=== PATIENT | female | born 1975 | race African-American/Black ===

== ENCOUNTER 2021-01-27 10:06 | Outpatient (REF) | payer OTHER, SELFPAY ==
[2021-01-27 11:12] LABS: MANUAL DIFF FLAG NO
[2021-01-27 11:37] LABS: Basophils Percent Auto 0.6 % (0-2); Eosinophils Absolute Auto 0.1 X10*3/uL (0.0-0.4); Eosinophils Percent Auto 1.6 % (0-4); Hematocrit 42.4 % (37-47); Hemoglobin 13.6 g/dl (12.0-16.0); Imm Gran Abs Auto 0.02 X10*3/uL (0.00-0.03); Imm Gran Pct Auto 0.3 % (0.0-0.4); Lymphocytes Absolute Auto 1.8 X10*3/uL (1.2-4.9); Lymphocytes Percent Auto 26.6 % (20-40); Mean Corpuscular HGB Conc 32.1 g/dl (31.0-35.0); Mean Corpuscular Hemoglobin 30.2 pg (27.0-33.0); Mean Platelet Volume 10.6 fL (9.4-12.3); Monocytes Absolute Auto 0.4 X10*3/uL (0.1-1.2); Monocytes Percent Auto 5.7 % (2-11); Neutrophils Absolute Auto 4.4 X10*3/uL (2.0-8.3); Neutrophils Percent Auto 65.2 % (45-73); Platelet Count 216 X10*3/uL (160-400); Red Blood Count 4.51 X10*6/uL (4.20-5.50); White Blood Count 6.8 X10*3/uL (4.8-10.8)
[2021-01-27 11:59] LABS: Alanine Aminotransferase 12 U/L (0-31); Alkaline Phosphatase 90 U/L (39-117); Anion Gap 10 (12-20); Aspartate Amino Transferase 13 U/L (5-31); Bilirubin Total 0.6 mg/dL (0.0-1.0); Blood Urea Nitrogen 12 mg/dL (9-16); Calcium 9.3 mg/dL (8.4-10.2); Carbon Dioxide 27 mmol/L (22-29); Chloride 106 mmol/L (96-108); Estimated Glomerular Filt Rate > 60; Glucose Random 99 mg/dL (60-115); Potassium 4.1 mmol/L (3.3-5.1); Sodium 139 mmol/L (135-145)
[2021-01-27 12:23] LABS: Ferritin 17 ng/mL (10-250); TSH reflex Free T4 1.48 uIU/mL (0.32-4.0)
[2021-01-31 14:01] LABS: Vitamin D 25-OH, D2 <4 ng/mL; Vitamin D 25-OH, D3 15 ng/mL; Vitamin D 25-OH, Total 15 ng/mL (30-100)
== END 2021-01-27 10:07 | disposition home or self-care (01) ==
LOC: HO.HMGCLDS 10:06
PROVIDERS: PCP Internal Medicine; Visit Provider Internal Medicine
DX: E66.01 Morbid (severe) obesity due to excess calories (principal); R51.9 Headache, unspecified; R53.83 Other fatigue
CPT/HCPCS: 36415; 80053; 82306; 82728; 84443; 85025

== ENCOUNTER 2021-03-29 08:58 | Outpatient (REF) | payer OTHER, SELFPAY ==
[2021-03-29 13:01] LABS: CT PCR NOT DETECTED (Not Detect.); NG PCR NOT DETECTED (Not Detect.)
[2021-03-30 09:14] LABS: BV Int Neg Control Negative (Negative); BV Int Pos Control Positive (Positive)
== END 2021-03-29 08:59 | disposition home or self-care (01) ==
LOC: HO.LAB 08:58
PROVIDERS: Visit Provider Nurse Practitioner Family
DX: R30.0 Dysuria (principal)
CPT/HCPCS: 87086; 87480; 87491; 87510; 87591; 87660

== ENCOUNTER 2021-08-02 09:04 | Outpatient (REF) | payer OTHER, SELFPAY ==
[2021-08-02 12:11] LABS: HBsAGNum1 0.14 S/CO (0.00-0.99); Hepatitis B Surface Antigen Negative (Negative)
[2021-08-03 08:52] LABS: Rubeola IgG (Measles) >300.00 AU/mL
[2021-08-04 19:11] LABS: TS Negative Control Passed; TS Panel A 0; TS Panel B 0; TS Positive Control Passed; TSpotTB Negative (Negative)
== END 2021-08-02 09:05 | disposition home or self-care (01) ==
LOC: HO.HMGCLDS 09:04
PROVIDERS: PCP Internal Medicine; Visit Provider Physician Assistant Medical
DX: Z02.1 Encounter for pre-employment examination (principal); Z20.822 Contact with and (suspected) exposure to COVID-19; Z11.1 Encounter for screening for respiratory tuberculosis
CPT/HCPCS: 86481; 86735; 86762; 86765; 86787; 87340; U0003; U0005

== ENCOUNTER 2022-08-05 11:43 | Outpatient (REF) | payer OTHER, SELFPAY ==
[2022-08-05 16:24] LABS: CT PCR NOT DETECTED (Not Detect.); NG PCR NOT DETECTED (Not Detect.)
[2022-08-06 15:03] LABS: BV Int Neg Control Negative (Negative)
[2022-08-06 15:04] LABS: BV Int Pos Control Positive (Positive)
[2022-08-08 18:32] LABS: TS Negative Control Passed; TS Panel A 3; TS Panel B 3; TS Positive Control Passed; TSpotTB Negative (Negative)
== END 2022-08-05 11:44 | disposition home or self-care (01) ==
LOC: HO.HMGCLDS 11:43
PROVIDERS: PCP Internal Medicine; Visit Provider Internal Medicine
DX: Z11.1 Encounter for screening for respiratory tuberculosis (principal); Z11.3 Encounter for screening for infections with a predominantly sexual mode of transmission
CPT/HCPCS: 86481; 87480; 87491; 87510; 87591; 87660

== ENCOUNTER 2022-11-02 08:18 | Outpatient (REF) | payer OTHER, SELFPAY ==
[2022-11-02 12:04] LABS: Alanine Aminotransferase 12 U/L (0-31); Albumin Level 3.9 g/dL (3.5-5.0); Alkaline Phosphatase 102 U/L (39-117); Anion Gap 12 (12-20); Aspartate Amino Transferase 12 U/L (5-31); Bilirubin Total 0.5 mg/dL (0.0-1.0); Blood Urea Nitrogen 12 mg/dL (9-16); Calcium 9.6 mg/dL (8.4-10.2); Carbon Dioxide 26 mmol/L (22-29); Chloride 107 mmol/L (96-108); Estimated Glomerular Filt Rate > 60; Glucose Random 99 mg/dL (60-115); Sodium 141 mmol/L (135-145); Total Protein 6.8 g/dL (6.5-8.0)
[2022-11-02 12:24] LABS: Free T4 (Free Thyroxine) 1.07 ng/dL (0.71-1.85); Thyroid Stimulating Hormone 4.35 uIU/mL (0.32-4.0)
== END 2022-11-02 08:19 | disposition home or self-care (01) ==
LOC: HO.HMGCLDS 08:18
PROVIDERS: PCP Internal Medicine; Visit Provider Pediatrics
DX: R79.89 Other specified abnormal findings of blood chemistry (principal); R94.6 Abnormal results of thyroid function studies
CPT/HCPCS: 36415; 80053; 84439; 84443

== ENCOUNTER 2023-04-17 08:57 | Outpatient (AMB) | payer OTHER, SELFPAY ==
--- NOTE | 2023-04-17 10:21 | MHC.OFFWIV ---
Intake Vital Signs 04/17/23 10:22 BP 120/72 Blood Pressure Location Lt brachial Position Sitting Pulse 79 Pulse Source Pulse Oximeter Temp 97.0 F Temp Source Oral Pulse Oximetry (%) 98 Oxygen Delivery Method Room Air Intake Visit Reasons: EP, Injury due to fall Intake Note: Pt is here today took a fall x3 days ago in a puddle of water and fell back and c/o Rt knee pain Patient Tobacco Use Status: Never used Tobacco Allergies No Known Allergies [No Known Allergies*] Allergy (Verified 04/17/23 10:24) HPI EP, Injury due to fall HPI Details Patient presents with right knee pain and soreness in her neck and back after a fall at work 3 days ago. She was seen at [facility] ER and states that x-rays were done of her right knee and she was given naproxen, Robaxin, lidocaine. Which she has been using along with ice and elevation of her leg. 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 There are no records available to review from her ED visit. She denies LOC or blow to head. Denies dizziness nausea or vomiting. Most persistent complaint is right knee pain which she states took the brunt of her fall. She fell onto both knees and then backwards. [facility] Social History Housing: House Alcohol intake: current Alcohol intake frequency: holidays/special occasions only Patient Tobacco Use Status: Never used Tobacco e-Cigarette/Vaping Use: Never Used service: No Current occupational status: employed Cognitive needs: No Hearing needs: No Vision needs: No Review of Systems Const Reports as per HPI and Reports no additional complaints Card Reports as per HPI and Reports no additional complaints Resp Reports as per HPI and Reports no additional complaints GI Reports as per HPI and Reports no additional complaints Musc Reports no additional complaints and Reports as per HPI Skin/Breast Denies lesions Neuro Reports no additional complaints and Reports as per HPI Physical Exam Vital Signs: Last Vital Signs Temp 97.0 F 04/17/23 10:22 Pulse 79 04/17/23 10:22 BP 120/72 04/17/23 10:22 Pulse Ox 98 04/17/23 10:22 Oxygen Delivery Method Room Air 04/17/23 10:22 Const General: cooperative, comfortable and no acute distress Orientation/consciousness: patient oriented x3 Resp Effort & Inspection: normal respiratory effort Auscultation: clear to auscultation bilaterally Cardio Rate: regular rate Rhythm: regular rhythm Heart sounds: S1 normal heart sound present and S2 normal heart sound present General: Yes no CVA tenderness Back/Spine/Pelvis Back: no CVA tenderness Cervical Spine: cervical ROM normal and cervical muscular tenderness (Bilateral) Thoracic/Lumbar Spine: thoracic and lumbar spine normal to inspection, paraspinal muscle tenderness (Bilateral) and No thoracic spinal tenderness Neuro General: patient oriented x3 Extrem Right lower extremity: normal to inspection and full ROM Left lower extremity: full ROM, normal capillary refill and knee Details: abnormal to inspection, tenderness Location: of the tibial tuberosity and of the infrapatellar area; not of the patella, swelling (Mild anterior knee), normal ROM, knee ligament exam normal and ecchymosis (About the anterior knee); no penetrating wound; no cyanosis Assessment & Plan Assessment & Plan (1) Contusion of right knee: Code(s): S80.01XA - Contusion of right knee, initial encounter Qualifiers: Encounter type: initial encounter Qualified Code(s): S80.01XA - Contusion of right knee, initial encounter (2) Cervicalgia: Code(s): M54.2 - Cervicalgia (3) Low back pain: Code(s): M54.50 - Low back pain, unspecified Qualifiers: Chronicity: acute Back pain laterality: bilateral Sciatica presence: without sciatica Qualified Code(s): M54.50 - Low back pain, unspecified Plan Continue meds given by ER. Continue rest and ice gentle stretching as tolerated heat for back may be better. Be out of work this week can return to work Monday if symptoms improve. She should talk to her employer as they may want her to follow up in [facility]. Return to clinic if symptoms persist consider Ortho or PT. I have provided her a knee brace for comfort but advise she should wean out of it as soon as possible to prevent atrophy. Coding Level of Care Code Est Pt Level 3 (16121) Diagnoses Contusion of right knee S80.01XA Encounter type: initial encounter Cervicalgia M54.2 Low back pain M54.50 Chronicity: acute Back pain laterality: bilateral Sciatica presence: without sciatica
[2023-04-17 10:22] VITALS: BP 120/72; PULSE 79; TEMP 36.1; O2SAT 98
== END 2023-04-17 10:20 | disposition home or self-care (01) ==
PROVIDERS: PCP Internal Medicine; Visit Provider Physician Assistant
DX: S80.01XA Contusion of right knee, initial encounter (principal); M54.2 Cervicalgia; M54.50 Low back pain, unspecified
CPT/HCPCS: 99213

== ENCOUNTER 2023-06-05 13:13 | Outpatient (AMB) | payer OTHER, SELFPAY ==
--- NOTE | 2023-06-05 14:36 | AM.OFFWIN_ITS ---
Intake Vital Signs 06/05/23 14:37 Weight 254 lb BP 112/74 Blood Pressure Location Rt brachial Position Sitting Pulse 66 Pulse Source Pulse Oximeter Pulse Oximetry (%) 100 Oxygen Delivery Method Room Air Intake Visit Reasons: EST/left leg pain to toes/swelling(lobby) Intake Note: Patient here for left leg pain, she states its been hurting to the touch for about 4 days now. she states she works on her feet a lot. no known injuries. Patient Tobacco Use Status: Never used Tobacco Allergies No Known Allergies [No Known Allergies*] Allergy (Verified 06/05/23 15:15) Medication List - Last Reconciled 06/05/23 by Popeye Stern MD No Known Home Meds Do you need a note to return to daycare/school/sports/work: No HPI EST/left leg pain to toes/swelling(lobby) HPI Details 48-year-old female presents to the office for a sick visit. Patient is complaining of pain in her left leg for the past 4 days. Symptoms are mostly in the front of the leg. Sometimes they feel numb. Patient is able to walk, climb stairs with no difficulty. Able to function. [facility] Social History Housing: House Alcohol intake: current Alcohol intake frequency: holidays/special occasions only Patient Tobacco Use Status: Never used Tobacco e-Cigarette/Vaping Use: Never Used service: No Current occupational status: employed Cognitive needs: No Hearing needs: No Vision needs: No Physical Exam Vital Signs: Last Vital Signs Pulse 66 06/05/23 14:37 BP 112/74 06/05/23 14:37 Pulse Ox 100 06/05/23 14:37 Oxygen Delivery Method Room Air 06/05/23 14:37 Extrem Other: Left leg: No joint line tenderness at the knee. Full range of motion at the knee. No visible bruising or swelling. Assessment & Plan Assessment & Plan (1) Left leg pain: Code(s): M79.605 - Pain in left leg Plan: Reassurance. To return if symptoms do not improve. Coding Level of Care Code Est Pt Level 3 (84093) Diagnoses Left leg pain M79.605
[2023-06-05 14:37] VITALS: BP 112/74; PULSE 66; O2SAT 100
== END 2023-06-05 15:29 | disposition home or self-care (01) ==
PROVIDERS: PCP Internal Medicine; Visit Provider Internal Medicine
DX: M79.605 Pain in left leg (principal)
CPT/HCPCS: 99213

== ENCOUNTER 2023-08-04 10:57 | Outpatient (REF) | payer OTHER, SELFPAY ==
[2023-08-04 14:15] LABS: Alanine Aminotransferase 23 U/L (0-31); Albumin Level 3.8 g/dL (3.5-5.0); Alkaline Phosphatase 104 U/L (39-117); Anion Gap 12 (12-20); Aspartate Amino Transferase 18 U/L (5-31); Bilirubin Total 0.4 mg/dL (0.0-1.0); Blood Urea Nitrogen 13 mg/dL (9-16); Calcium 9.7 mg/dL (8.4-10.2); Carbon Dioxide 24 mmol/L (22-29); Chloride 106 mmol/L (96-108); Cholesterol 166 mg/dL (<200); Estimated Glomerular Filt Rate > 60; Glucose Random 95 mg/dL (60-115); HDL Cholesterol 67 mg/dL (>40); LDL Cholesterol Calculated 86 mg/dL (<100); Sodium 138 mmol/L (135-145); Total Protein 7.1 g/dL (6.5-8.0); Triglycerides 66 mg/dL (<150)
[2023-08-04 14:19] LABS: TSH reflex Free T4 5.08 uIU/mL (0.32-4.0)
[2023-08-04 14:27] LABS: Vitamin B12 565 pg/mL (200-900)
[2023-08-04 15:30] LABS: Free T4 (Free Thyroxine) 0.88 ng/dL (0.71-1.85)
== END 2023-08-04 10:58 | disposition home or self-care (01) ==
LOC: HO.HMGCLDS 10:57
PROVIDERS: PCP Internal Medicine; Visit Provider Internal Medicine
DX: Z13.89 Encounter for screening for other disorder (principal)
CPT/HCPCS: 36415; 80053; 80061; 82607; 84439; 84443

== ENCOUNTER 2023-11-14 09:12 | Outpatient (REF) | payer OTHER, SELFPAY ==
[2023-11-14 13:24] LABS: TSH reflex Free T4 6.09 uIU/mL (0.32-4.0)
[2023-11-14 14:35] LABS: Free T4 (Free Thyroxine) 0.87 ng/dL (0.71-1.85)
== END 2023-11-14 09:13 | disposition home or self-care (01) ==
LOC: HO.HMGCLDS 09:12
PROVIDERS: PCP Internal Medicine; Visit Provider Internal Medicine
DX: R94.6 Abnormal results of thyroid function studies (principal)
CPT/HCPCS: 36415; 84439; 84443

== ENCOUNTER 2023-11-17 08:22 | Outpatient (AMB) | payer OTHER, SELFPAY ==
--- NOTE | 2023-11-17 10:39 | MHC.PC.OV ---
Vital Signs 11/17/23 10:39 Height 5 ft 6 in Intake Visit Reasons: Discuss Results~ Allergies No Known Allergies [No Known Allergies*] Allergy (Verified 06/05/23 15:15) Tobacco use date assessed: 11/25/22 [facility] Social History Housing: House Alcohol intake: current Alcohol intake frequency: holidays/special occasions only Patient Tobacco Use Status: Never used Tobacco e-Cigarette/Vaping Use: Never Used service: No Current occupational status: employed Cognitive needs: No Hearing needs: No Vision needs: No Questionnaire Thrive Questionnaire I am a: Patient What is your living situation today?: I have a steady place to live Within the past 12 months, did the food you bought not last and you didn't have the money to get more?: Never true Within the past 12 months, did you worry whether your food would run out before you got money to buy more?: Never true Please select the resources that you would like help with: Food and None THRIVE Score: 0 AUDIT C Alcohol Use Questionnaire (AUDIT-C) 1. How often do you have a drink containing alcohol?: Never 2. How many drinks containing alcohol do you have on a typical day when you are drinking?: 1 or 2 3. How often do you have six or more drinks on one occasion?: Never Total Score: 0 RUBÉN-7 AMB Questionnaire RUBÉN-7 Feeling nervous, anxious, or on edge: 1 = Several days Not being able to stop or control worryin = Not at all Worrying too much about different things: 0 = Not at all Trouble relaxin = Several days Being so restless that it is hard to sit still: 1 = Several days Becoming easily annoyed or irritable: 0 = Not at all Feeling afraid as if something awful might happen: 0 = Not at all Total RUBÉN-7 score (0-4 normal; 5-9 mild; 10-14 moderate; 15-21 severe): 3 Source: Developed by Drs. Jurgen Dash, Araceli Singh, Liam Arauz and colleagues, with an educational ameay from [employer]. Physical exam (Primary Care) Tobacco/Smoking Status: Tobacco use Status Tobacco use date assessed 11/25/22 11/25/22 11:45 Patient Tobacco Use Status Never used Tobacco 06/05/23 14:44 e-Cigarette/Vaping Use Never Used 11/25/22 11:45 Coding
--- NOTE | 2023-11-17 11:30 | MHC.PC.OV ---
Vital Signs 11/17/23 10:39 Height 5 ft 6 in Intake Visit Reasons: Discuss Results~ Allergies No Known Allergies [No Known Allergies*] Allergy (Verified 06/05/23 15:15) Medication List - Last Reconciled 11/17/23 by Vicente Phillips MD meloxicam 15 mg PO DAILY Tobacco use date assessed: 11/25/22 HPI Discuss Results~ HPI Details Patient is 48-year-old female this is a telemedicine visit Patient had labs done early October her TSH level was off, so we repeated it again and this time it is worse than before Report discussed with the patient I will be starting her on levothyroxine 50 mcg I have also ordered ultrasound of her thyroid gland Patient was instructed to repeat labs again in 6 weeks. [facility] Social History Housing: House Alcohol intake: current Alcohol intake frequency: holidays/special occasions only Patient Tobacco Use Status: Never used Tobacco e-Cigarette/Vaping Use: Never Used service: No Current occupational status: employed Cognitive needs: No Hearing needs: No Vision needs: No Questionnaire Thrive Questionnaire I am a: Patient What is your living situation today?: I have a steady place to live Within the past 12 months, did the food you bought not last and you didn't have the money to get more?: Never true Within the past 12 months, did you worry whether your food would run out before you got money to buy more?: Never true Please select the resources that you would like help with: Food and None THRIVE Score: 0 AUDIT C Alcohol Use Questionnaire (AUDIT-C) 1. How often do you have a drink containing alcohol?: Never 2. How many drinks containing alcohol do you have on a typical day when you are drinking?: 1 or 2 3. How often do you have six or more drinks on one occasion?: Never Total Score: 0 RUBÉN-7 AMB Questionnaire RUBÉN-7 Feeling nervous, anxious, or on edge: 1 = Several days Not being able to stop or control worryin = Not at all Worrying too much about different things: 0 = Not at all Trouble relaxin = Several days Being so restless that it is hard to sit still: 1 = Several days Becoming easily annoyed or irritable: 0 = Not at all Feeling afraid as if something awful might happen: 0 = Not at all Total RUBÉN-7 score (0-4 normal; 5-9 mild; 10-14 moderate; 15-21 severe): 3 Source: Developed by Drs. Jurgen Dash, Araceli Singh, Liam Arauz and colleagues, with an educational ameya from [employer]. Review of Systems Const Denies chills and Denies fever(s) ENT Denies epistaxis and Denies nasal discharge Card Denies chest pain Resp Denies chest congestion, Denies cough and Denies hemoptysis GI Denies diarrhea and Denies nausea Skin/Breast Denies rash Neuro Reports no additional complaints Psych Reports no additional complaints Endo Reports no additional complaints Physical exam (Primary Care) Tobacco/Smoking Status: Tobacco use Status Tobacco use date assessed 11/25/22 11/25/22 11:45 Patient Tobacco Use Status Never used Tobacco 06/05/23 14:44 e-Cigarette/Vaping Use Never Used 11/25/22 11:45 Telehealth Telehealth Location of provider rendering services: practice address Location of patient: address on file Patient Identification confirmed using: Name, : Yes Telehealth method: voice only Patient verbally consented to treatment: Yes Patient verbally consented to billing insurance company: Yes Patient informed of any privacy concerns related to visit: Yes Minutes spent on Phone/Video with Pt.: 12 Assessment and Plan Assessment & Plan (1) Other specified hypothyroidism: Code(s): E03.8 - Other specified hypothyroidism Plan Patient is 48-year-old female this is a telemedicine visit Patient had labs done early October her TSH level was off, so we repeated it again and this time it is worse than before Report discussed with the patient I will be starting her on levothyroxine 50 mcg I have also ordered ultrasound of her thyroid gland Patient was instructed to repeat labs again in 6 weeks. Orders: Orders TSH reflex Free T4 6 Weeks E03.8 - Other specified hypothyroidism Thyroglobulin Antibodies Today E03.8 - Other specified hypothyroidism Medications: New levothyroxine Take medication on empty stomach 50 mcg PO DAILY 90 tabs 0RF Coding Level of Care Code Tele Est Pt Level 3 (94890) Diagnoses Other specified hypothyroidism E03.8
== END 2023-11-17 12:29 | disposition home or self-care (01) ==
LOC: HO.HMGC 08:22
PROVIDERS: PCP Internal Medicine; Visit Provider Internal Medicine
DX: E03.8 Other specified hypothyroidism (principal)
CPT/HCPCS: 99213

== ENCOUNTER 2023-11-27 14:20 | Outpatient (REF) | payer OTHER, SELFPAY ==
[2023-11-28 08:59] LABS: Thyroglobulin Antibodies 1 IU/mL (< or = 1)
== END 2023-11-27 14:21 | disposition home or self-care (01) ==
LOC: HO.HMGCLDS 14:20
PROVIDERS: PCP Internal Medicine; Visit Provider Internal Medicine
DX: E03.8 Other specified hypothyroidism (principal)
CPT/HCPCS: 36415; 86800

== ENCOUNTER 2024-03-07 10:43 | Outpatient (AMB) | payer OTHER, SELFPAY ==
[2024-03-07 11:02] VITALS: BP 122/72; PULSE 95; TEMP 36.3; O2SAT 99; BMI 43.9
--- NOTE | 2024-03-07 11:02 | AM.OFFWIN_ITS ---
Intake Vital Signs 03/07/24 11:02 Height 5 ft 6 in Weight 272 lb BMI 43.9 BP 122/72 Blood Pressure Location Lt brachial Position Sitting Pulse 95 Pulse Source Pulse Oximeter Temp 97.4 F Temp Source Temporal Artery Scan Pulse Oximetry (%) 99 Oxygen Delivery Method Room Air Intake Visit Reasons: EST/ uti(lobby) Intake Note: pt is here today for UTI started 2 days ago Patient Tobacco Use Status: Never used Tobacco Allergies No Known Allergies [No Known Allergies*] Allergy (Verified 03/07/24 11:08) Do you need a note to return to daycare/school/sports/work: No HPI HPI Comments History of Present Illness Details 48 y/o female patient who presents to [facility] in clinic with c/o urinary frequency and vaginal itching/discharge. [facility] Medical History (Updated 03/07/24 @ 11:30 by Payton Person NP) Vaginitis and vulvovaginitis Social History Housing: House Alcohol intake: current Alcohol intake frequency: holidays/special occasions only Patient Tobacco Use Status: Never used Tobacco e-Cigarette/Vaping Use: Never Used service: No Current occupational status: employed Cognitive needs: No Hearing needs: No Vision needs: No Review of Systems Const All systems reviewed & are unremarkable except as noted in HPI and below Physical Exam Vital Signs: Last Vital Signs Temp 97.4 F 03/07/24 11:02 Pulse 95 03/07/24 11:02 BP 122/72 03/07/24 11:02 Pulse Ox 99 03/07/24 11:02 Oxygen Delivery Method Room Air 03/07/24 11:02 BMI result Body Mass Index 43.9 Const General: comfortable and no acute distress Nutritional Appearance: obese Orientation/consciousness: patient oriented x3 HEENT Head: Yes normocephalic External Female Exam: normal external appearance, erythema, externally tender, No external swelling, No lesion and No tender Speculum Exam - Vagina: abnormal vaginal discharge white, malodorous and frothy, erythematous, no swelling and tenderness Speculum Exam - Cervix: normal appearance of the cervix, Cervical os open and nontender Bimanual exam- vagina & uterus: normal bimanual exam, uterine size normal and No Cervical tenderness present Bimanual Exam- Adnexa, other: normal adnexae OB/external & speculum: Cervical os open Neuro General: patient oriented x3, gait normal and moves all extremities Psych Speech and movement: Normal speech and movement present Results AMB Urinalysis, Automated UA Leukoctes 15 Jeremiah/uL Last Edit by Valarie Mcdermott MA on 03/07/24 11:20 UA Nitrite Negative Last Edit by Valarie Mcdermott MA on 03/07/24 11:20 UA Urobilinogen 0.2 mg/dL Last Edit by Valarie Mcdermott MA on 03/07/24 11:20 UA Protein 15 mg/dL Last Edit by Valarie Mcdermott MA on 03/07/24 11:20 UA pH 6.0 Last Edit by Valarie Mcdermott MA on 03/07/24 11:20 UA Blood 0 German/uL Last Edit by Valarie Mcdermott MA on 03/07/24 11:20 UA Specific Matador 1.030 Last Edit by Valarie Mcdermott MA on 03/07/24 11:20 UA Ketone Negative Last Edit by Valarie Mcdermott MA on 03/07/24 11:20 UA Bilirubin 0 mg/dL Last Edit by Valarie Mcdermott MA on 03/07/24 11:20 UA Glucose 0 mg/dL Last Edit by Valarie Mcdermott MA on 03/07/24 11:20 Results Reviewed Results Reviewed: Laboratory Last Values Urine pH (Auto) 6.0 03/07/24 11:19 Specific Matador (Auto) 1.030 03/07/24 11:19 Urine Protein (Auto) 15 mg/dL 03/07/24 11:19 Glucose (UA)(Auto) 0 mg/dL 03/07/24 11:19 Urine Ketones (Auto) Negative 03/07/24 11:19 Urine Blood (Auto) 0 German/uL 03/07/24 11:19 Urine Nitrite (Auto) Negative 03/07/24 11:19 Urine Bilirubin (Auto) 0 mg/dL 03/07/24 11:19 Urine Urobilinogen (Auto) 0.2 mg/dL 03/07/24 11:19 Leukocyte Esterase (Auto) 15 Jeremiah/uL 03/07/24 11:19 Assessment & Plan Assessment & Plan (1) Vaginitis and vulvovaginitis: Code(s): N76.0 - Acute vaginitis Plan: - Educated on lifestyle changes - No douching - Void before/after intercourse. Orders: Orders Bacterial Vaginosis Panel Today N76.0 - Acute vaginitis Medications: New terconazole 80 mg vaginal BEDTIME 3 ea 0RF 3 days N76.0 - Acute vaginitis metronidazole 500 mg PO BID 14 tabs 0RF 7 days N76.0 - Acute vaginitis Coding Level of Care Code Est Pt Level 4 (79250) Diagnoses Vaginitis and vulvovaginitis N76.0 Time Spent (min) 20
== END 2024-03-07 11:39 | disposition home or self-care (01) ==
PROVIDERS: PCP Internal Medicine; Visit Provider Nurse Practitioner Family
DX: N76.0 Acute vaginitis (principal)
CPT/HCPCS: 99214

== ENCOUNTER 2024-03-07 11:20 | Outpatient (REF) | payer OTHER, SELFPAY ==
[2024-03-07 16:07] LABS: Bacterial Vaginosis PCR NEGATIVE (Negative); Candida Group PCR DETECTED (Not Detect); Candida glab krusei PCR NOT DETECTED (Not Detect); Trichomonas vaginalis PCR NOT DETECTED (Not Detect)
== END 2024-03-07 11:21 | disposition home or self-care (01) ==
LOC: HO.LAB 11:20
PROVIDERS: Visit Provider Nurse Practitioner Family
DX: N76.0 Acute vaginitis (principal)
CPT/HCPCS: 0352U

== ENCOUNTER 2024-04-17 08:10 | Outpatient (AMB) | payer OTHER, SELFPAY ==
--- NOTE | 2024-04-17 08:33 | AM.OFFWIN_ITS ---
Intake Vital Signs 04/17/24 08:34 Height 5 ft 6 in BP 122/72 Blood Pressure Location Rt brachial Position Sitting Pulse 72 Pulse Source Pulse Oximeter Temp 97.8 F Temp Source Oral Pulse Oximetry (%) 98 Oxygen Delivery Method Room Air Intake Visit Reasons: EP lft side body pain left [facility] ER 04/16/24 Intake Note: pt is here for left side pain, patient was at [facility] ED yesterday and left, EKG was done at [facility] and normal ekg. patient states she had blood owkr done but unsure results Patient Tobacco Use Status: Never used Tobacco Allergies No Known Allergies [No Known Allergies*] Allergy (Verified 04/17/24 08:34) Do you need a note to return to daycare/school/sports/work: No HPI HPI Comments History of Present Illness Details 48 y/o female patient who presents to [facility] in clinic with c/o right sided Thoracic region pain since yesterday morning. She we to [facility] yesterday evening, but left Against medical Advise. She has Chest Xray and ECG which were both negative. Denies SOB, Wheezing, Palpitations or Chest Pain. Denies injury or trauma. Pt is Morbidly obese. [facility] Medical History (Updated 03/07/24 @ 11:30 by Payton Person NP) Vaginitis and vulvovaginitis Social History Housing: House Alcohol intake: current Alcohol intake frequency: holidays/special occasions only Patient Tobacco Use Status: Never used Tobacco e-Cigarette/Vaping Use: Never Used service: No Current occupational status: employed Cognitive needs: No Hearing needs: No Vision needs: No Review of Systems Const All systems reviewed & are unremarkable except as noted in HPI and below Physical Exam Vital Signs: Last Vital Signs Temp 97.8 F 04/17/24 08:34 Pulse 72 04/17/24 08:34 BP 122/72 04/17/24 08:34 Pulse Ox 98 04/17/24 08:34 Oxygen Delivery Method Room Air 04/17/24 08:34 Const General: comfortable and no acute distress Nutritional Appearance: obese morbidly obese Orientation/consciousness: patient oriented x3 Resp Effort & Inspection: normal respiratory effort and able to speak in complete sentences Auscultation: clear to auscultation bilaterally, no crackles, no rales, no rhonchi and no wheezes Cardio Rate: regular rate Rhythm: regular rhythm Back/Spine/Pelvis Back: back tenderness Thoracic/Lumbar Spine: thoracic and lumbar spine normal to inspection and thoracic spinal tenderness (Tenderness with Palpation) at T3, at T4 and at T5 Neuro General: patient oriented x3, gait normal and moves all extremities Psych Speech and movement: Normal speech and movement present Assessment & Plan Assessment & Plan (1) Radicular pain of thoracic region: Code(s): M54.14 - Radiculopathy, thoracic region Plan: Acetaminophen for pain relief Ice/Hot RTC ED if pain severe Coding Level of Care Code Est Pt Level 3 (73286) Diagnoses Radicular pain of thoracic region M54.14 Time Spent (min) 15
[2024-04-17 08:34] VITALS: BP 122/72; PULSE 72; TEMP 36.6; O2SAT 98
== END 2024-04-17 08:58 | disposition home or self-care (01) ==
PROVIDERS: PCP Internal Medicine; Visit Provider Nurse Practitioner Family
DX: M54.14 Radiculopathy, thoracic region (principal)
CPT/HCPCS: 99213

== ENCOUNTER 2024-04-19 11:37 | Outpatient (AMB) | payer OTHER, SELFPAY ==
--- NOTE | 2024-04-19 11:39 | A.OFFPC_ITS ---
Vital Signs 04/19/24 11:40 Height 5 ft 6 in Weight 286 lb 6 oz BMI 46.2 BP 132/84 Blood Pressure Location Lt brachial Position Sitting Pulse 75 Pulse Source Pulse Oximeter Pulse Oximetry (%) 96 Oxygen Delivery Method Room Air Intake Visit Reasons: Annual PE/ OK per [place] Allergies No Known Allergies [No Known Allergies*] Allergy (Verified 04/19/24 11:42) Medication List - Last Reconciled 04/19/24 by Vicente Phillips MD No Known Home Meds Tobacco use date assessed: 04/19/24 Dental Screening Dental Screen Date: 04/19/24 Did you have a dental visit in the last 12 months?: No Did you have a dental problem in the last 6 months where you did not have access to dental care?: No Was dental information given to patient?: Patient has dentist HPI Annual PE/ OK per [place] HPI Details Patient is a 48-year-old female with a history of hypothyroidism Stopped taking her thyroid medication thinking that was causing weight gain Explained to patient that hypothyroidism may cause weight gain It is important that she continue thyroid medication as prescribed and follow-up regularly Lab order placed to be done today She is due for OBGYN visit, referral placed Patient says that she had mammogram already at [facility] BMI is elevated patient need to lose weight, we will be booking her appointment with the dietitian. After the lab report is available we will book telemedicine visit to talk about it Physical exam 1 year She need a letter today for her work she has working as a [employer] [facility] Medical History Vaginitis and vulvovaginitis Social History Housing: House Alcohol intake: current Alcohol intake frequency: holidays/special occasions only Patient Tobacco Use Status: Never used Tobacco e-Cigarette/Vaping Use: Never Used service: No Current occupational status: employed Cognitive needs: No Hearing needs: No Vision needs: No Questionnaire PHQ-9 Over the last 2 weeks, how often have you been bothered by any of the following problems? 1. Little interest or pleasure in doing things: several days 2. Feeling down, depressed, or hopeless: not at all 3. Trouble falling or staying asleep, or sleeping too much: not at all 4. Feeling tired or having little energy: not at all 5. Poor appetite or overeating: not at all 6. Feeling bad about yourself - or that you are a failure or have let yourself or your family down: not at all 7. Trouble concentrating on things, such as reading the newspaper or watching television: not at all 8. Moving or speaking so slowly that other people could have noticed. Or the opposite - being so fidgety or restless that you have been moving around a lot more than usual: not at all 9. Thoughts that you would be better off or of hurting yourself in some way: not at all Total score: 1 Depression Screening Interpretation: Negative Depression Screening Done: Yes 45388 - PHQ-9 Billing: Yes Source: Developed by Drs. Jurgen Dash, Araceli Singh, Liam Arauz and colleagues, with an educational ameya from [employer]. Thrive Questionnaire Date Thrive assessed: 04/19/24 I am a: Patient What is your living situation today?: I have a steady place to live Within the past 12 months, did the food you bought not last and you didn't have the money to get more?: Never true Within the past 12 months, did you worry whether your food would run out before you got money to buy more?: Never true Do you have trouble paying for medicines?: No Do you have trouble getting transportation to medical appointments?: No Do you have trouble paying your heating and electricity bill?: No Do you have trouble taking care of your child, family member or friend?: No Do you have trouble with day-to-day activities such as bathing, preparing meals, shopping, managing finances, etc.?: No Are you currently unemployed and looking for a job?: No Are you interested in more education?: No Please select the resources that you would like help with: Food and None Currently or been in a relationship where the following occur: No concerns reported THRIVE Score: 0 AUDIT C Alcohol Use Questionnaire (AUDIT-C) 1. How often do you have a drink containing alcohol?: Never 2. How many drinks containing alcohol do you have on a typical day when you are drinking?: 1 or 2 3. How often do you have six or more drinks on one occasion?: Less than monthly Total Score: 1 Score Reviewed/Action Taken: Yes RUBÉN-7 AMB Questionnaire RUBÉN-7 Date RUBÉN - 7 assessed: 04/19/24 Feeling nervous, anxious, or on edge: 1 = Several days Not being able to stop or control worryin = Not at all Worrying too much about different things: 0 = Not at all Trouble relaxin = Several days Being so restless that it is hard to sit still: 1 = Several days Becoming easily annoyed or irritable: 0 = Not at all Feeling afraid as if something awful might happen: 0 = Not at all Total RUBÉN-7 score (0-4 normal; 5-9 mild; 10-14 moderate; 15-21 severe): 3 Source: Developed by Drs. Jurgen Dash, Araceli Singh, Liam Arauz and colleagues, with an educational ameya from [employer]. RUBÉN-7 Assessment Billing RUBÉN-7 Assessment Tool: RUBÉN-7 Assessment 65445 Review of Systems Const Denies chills, Denies fever(s) and Denies headache(s) Eyes Denies blurry vision ENT Denies headache(s), Denies nasal discharge, Denies nasal obstruction, Denies odynophagia and Denies sinus pain Card Denies chest pain at rest and Denies chest pain with activity Resp Denies cough and Denies hemoptysis GI Denies diarrhea, Denies odynophagia, Denies vomiting and Denies hematemesis Reports as per HPI Musc Denies abnormal gait Skin/Breast Reports as per HPI Neuro Denies Neuro-related abnormal movements, Denies Abnormal speech present, Denies abnormal gait, Denies headache(s) and Denies Sensory deficit (Neuro) Psych Denies mood swings and Denies paranoia Endo Reports as per HPI Pierce/Lymph Reports as per HPI Aller/Immun Reports as per HPI Physical exam (Primary Care) Vital Signs: Last Vital Signs Pulse 75 04/19/24 11:40 BP 132/84 04/19/24 11:40 Pulse Ox 96 04/19/24 11:40 Oxygen Delivery Method Room Air 04/19/24 11:40 BMI result Body Mass Index 46.2 Tobacco/Smoking Status: Tobacco use Status Tobacco use date assessed 04/19/24 04/19/24 11:43 Patient Tobacco Use Status Never used Tobacco 04/19/24 11:43 e-Cigarette/Vaping Use Never Used 04/19/24 11:43 PHQ-9: PHQ-9 Score PHQ-9: Total score 1 04/19/24 12:09 Depression Screening Interpretation: Negative Thrive Assessment: Date of Thrive Assessment Date Thrive assessed 04/19/24 04/19/24 11:43 Currently or been in a relationship where the following occur: No concerns reported Const General: cooperative, comfortable and no acute distress Orientation/consciousness: patient oriented x3 HENMT Head: Yes normocephalic and Yes atraumatic Eyes General: appearance normal, both eyes and all related structures Pupils: Equal, round and reactive pupils present EOM: EOMs intact bilaterally Neck Neck: Yes supple and No lymphadenopathy Thyroid: Thyroid normal Lymphatic: no lymphadenopathy noted Chest Breast/axilla palpation: normal palpation of the breasts Resp Effort & Inspection: normal respiratory effort and able to speak in complete sentences Auscultation: clear to auscultation bilaterally Cardio Heart sounds: S1 normal heart sound present and S2 normal heart sound present GI Palpation (GI): Soft to palpation and nontender Auscultation: normal bowel sounds General: Yes no CVA tenderness Back/Spine/Pelvis Back: no CVA tenderness Skin General skin exam: elasticity normal and turgor normal Neuro General: patient oriented x3 and gait normal Cranial nerves: Yes Equal, round and reactive pupils present Speech: No Abnormal speech present Sensory Exam: No Sensory deficit (Neuro) Coordination: tandem gait normal and Romberg test negative Extrem General: Yes normal exam except as noted and No edema Assessment and Plan Assessment & Plan (1) Encounter for general adult medical examination with abnormal findings: Code(s): Z00.01 - Encounter for general adult medical examination with abnormal findings (2) Low vitamin B12 level: Code(s): E53.8 - Deficiency of other specified B group vitamins (3) Vitamin D deficiency: Code(s): E55.9 - Vitamin D deficiency, unspecified (4) Other specified hypothyroidism: Code(s): E03.8 - Other specified hypothyroidism (5) Morbid obesity due to excess calories: Code(s): E66.01 - Morbid (severe) obesity due to excess calories Plan Patient is a 48-year-old female with a history of hypothyroidism Stopped taking her thyroid medication thinking that was causing weight gain Explained to patient that hypothyroidism may cause weight gain It is important that she continue thyroid medication as prescribed and follow-up regularly Lab order placed to be done today She is due for OBGYN visit, referral placed Patient says that she had mammogram already at [facility] BMI is elevated patient need to lose weight, we will be booking her appointment with the dietitian. After the lab report is available we will book telemedicine visit to talk about it Physical exam 1 year She need a letter today for her work she has working as a [employer] Orders: Orders TSH reflex Free T4 Today E03.8 - Other specified hypothyroidism, E53.8 - Deficiency of other specified B group vitamins, E55.9 - Vitamin D deficiency, unspecified, G43.909 - Migraine, unspecified, not intractable, without status migrainosus, Z01.419 - Encounter for gynecological examination (general) (routine) without abnormal findings Complete Blood Count Auto Diff Today E03.8 - Other specified hypothyroidism, E53.8 - Deficiency of other specified B group vitamins, E55.9 - Vitamin D deficiency, unspecified, G43.909 - Migraine, unspecified, not intractable, without status migrainosus, Z01.419 - Encounter for gynecological examination (general) (routine) without abnormal findings Comprehensive Met. Panel Today E03.8 - Other specified hypothyroidism, E53.8 - Deficiency of other specified B group vitamins, E55.9 - Vitamin D deficiency, unspecified, G43.909 - Migraine, unspecified, not intractable, without status migrainosus, Z01.419 - Encounter for gynecological examination (general) (ro utine) without abnormal findings LDL Cholesterol Direct Today E03.8 - Other specified hypothyroidism, E53.8 - Deficiency of other specified B group vitamins, E55.9 - Vitamin D deficiency, unspecified, G43.909 - Migraine, unspecified, not intractable, without status migrainosus, Z01.419 - Encounter for gynecological examination (general) (routine) without abnormal findings Vitamin D 25-OH (D2 and D3) Today E03.8 - Other specified hypothyroidism, E53.8 - Deficiency of other specified B group vitamins, E55.9 - Vitamin D deficiency, unspecified, G43.909 - Migraine, unspecified, not intractable, without status migrainosus, Z01.419 - Encounter for gynecological examination (general) (routine) without abnormal findings Vitamin B12 Today E03.8 - Other specified hypothyroidism, E53.8 - Deficiency of other specified B group vitamins, E55.9 - Vitamin D deficiency, unspecified, G43.909 - Migraine, unspecified, not intractable, without status migrainosus, Z01.419 - Encounter for gynecological examination (general) (routine) without abnormal findings T Spot TB Today Z00.01 - Encounter for general adult medical examination with abnormal findings 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
[2024-04-19 11:40] VITALS: BP 132/84; PULSE 75; O2SAT 96; BMI 46.2
== END 2024-04-19 12:12 | disposition home or self-care (01) ==
LOC: HO.HMGC 11:37
PROVIDERS: PCP Internal Medicine; Visit Provider Internal Medicine
DX: Z00.00 Encounter for general adult medical examination without abnormal findings (principal); E53.8 Deficiency of other specified B group vitamins; E66.01 Morbid (severe) obesity due to excess calories; Z68.42 Body mass index [BMI] 45.0-49.9, adult; E55.9 Vitamin D deficiency, unspecified; E03.8 Other specified hypothyroidism
CPT/HCPCS: 99396

== ENCOUNTER 2024-04-19 12:39 | Outpatient (REF) | payer OTHER, SELFPAY ==
[2024-04-19 12:59] LABS: MANUAL DIFF FLAG NO
[2024-04-19 13:36] LABS: Basophils Absolute Auto 0.1 X10*3/uL (0.0-0.2); Basophils Percent Auto 0.7 % (0-2); Eosinophils Absolute Auto 0.1 X10*3/uL (0.0-0.4); Eosinophils Percent Auto 1.5 % (0-4); Hematocrit 39.9 % (37.0-47.0); Hemoglobin 12.7 g/dl (12.0-16.0); Imm Gran Abs Auto 0.02 X10*3/uL (0.00-0.03); Imm Gran Pct Auto 0.3 % (0.0-0.4); Lymphocytes Absolute Auto 2.5 X10*3/uL (1.2-4.9); Lymphocytes Percent Auto 33.7 % (20-40); Mean Corpuscular HGB Conc 31.8 g/dl (31.0-35.0); Mean Corpuscular Hemoglobin 29.4 pg (27.0-33.0); Mean Corpuscular Volume 92.4 fL (80.0-98.0); Mean Platelet Volume 10.2 fL (9.4-12.3); Monocytes Absolute Auto 0.5 X10*3/uL (0.1-1.2); Monocytes Percent Auto 6.2 % (2-11); Neutrophils Absolute Auto 4.3 x10*3/uL (2.0-8.3); Neutrophils Percent Auto 57.6 % (45-73); Platelet Count 228 X10*3/uL (160-400); Red Blood Count 4.32 X10*6/uL (4.20-5.50); Red Cell Distribution Width 12.4 % (11.0-16.0); White Blood Count 7.4 X10*3/uL (4.8-10.8)
[2024-04-19 14:19] LABS: Alanine Aminotransferase 16 U/L (0-31); Albumin Level 3.9 g/dL (3.5-5.0); Alkaline Phosphatase 107 U/L (39-117); Anion Gap 9 (12-20); Aspartate Amino Transferase 13 U/L (5-31); Bilirubin Total 0.3 mg/dL (0.0-1.0); Blood Urea Nitrogen 12 mg/dL (9-16); Calcium 9.6 mg/dL (8.4-10.2); Carbon Dioxide 27 mmol/L (22-29); Chloride 108 mmol/L (96-108); Estimated Glomerular Filt Rate > 60; Glucose Random 86 mg/dL (60-115); Sodium 140 mmol/L (135-145); Total Protein 7.2 g/dL (6.5-8.0)
[2024-04-19 14:36] LABS: Vitamin B12 678 pg/mL (200-900)
[2024-04-19 14:37] LABS: TSH reflex Free T4 3.76 uIU/mL (0.32-4.0)
[2024-04-22 00:14] LABS: TS Negative Control Passed; TS Panel A 0; TS Panel B 0; TS Positive Control Passed; TSpotTB Negative (Negative)
[2024-04-22 19:38] LABS: LDL Cholesterol Direct 107 mg/dL (<100)
[2024-04-24 13:33] LABS: Vitamin D 25-OH, D2 <4 ng/mL; Vitamin D 25-OH, D3 9 ng/mL; Vitamin D 25-OH, Total 9 ng/mL (30-100)
== END 2024-04-19 12:40 | disposition home or self-care (01) ==
LOC: HO.LAB 12:39
PROVIDERS: PCP Internal Medicine; Visit Provider Internal Medicine
DX: Z00.01 Encounter for general adult medical examination with abnormal findings (principal); E03.8 Other specified hypothyroidism; E55.9 Vitamin D deficiency, unspecified; G43.909 Migraine, unspecified, not intractable, without status migrainosus; E53.8 Deficiency of other specified B group vitamins
CPT/HCPCS: 36415; 80053; 82306; 82607; 83721; 84443; 85025; 86481

== ENCOUNTER 2024-06-06 07:55 | Outpatient (AMB) | payer OTHER, SELFPAY ==
--- NOTE | 2024-06-06 08:27 | MHC.PC.OV ---
Intake Visit Reasons: Discuss Weight Allergies No Known Allergies [No Known Allergies*] Allergy (Verified 06/06/24 08:28) Medication List - Last Reconciled 06/06/24 by Vicente Phillips MD cholecalciferol (vitamin D3) 25 mcg PO DAILY 90 days Tobacco use date assessed: 06/06/24 Dental Screening Dental Screen Date: 06/06/24 Did you have a dental visit in the last 12 months?: Yes Did you have a dental problem in the last 6 months where you did not have access to dental care?: No Was dental information given to patient?: Patient has dentist HPI Discuss Weight HPI Details Patient is 49 year old female this is telemed apt to talk about her labs and to start her on wt lose medication we talked about the injectables and Phentermine after discussing the side effect and possibility of rejection by Insurance she decided to try Injectables labs shows normal tsh, i have sent refill of her thyroid medication , she is to continue 50 mcg wagovy .25 mg injections sent we will try to get it approved she is aware that she will need to come in for follow up in 4 wks if approved REPLACED BY [facility] Medical History Vaginitis and vulvovaginitis Social History Housing: House Alcohol intake: current Alcohol intake frequency: holidays/special occasions only Patient Tobacco Use Status: Never used Tobacco e-Cigarette/Vaping Use: Never Used service: No Current occupational status: employed Cognitive needs: No Hearing needs: No Vision needs: No Questionnaire Thrive Questionnaire Date Thrive assessed: 04/19/24 AUDIT C Alcohol Use Questionnaire (AUDIT-C) 1. How often do you have a drink containing alcohol?: Never 2. How many drinks containing alcohol do you have on a typical day when you are drinking?: 1 or 2 3. How often do you have six or more drinks on one occasion?: Less than monthly Total Score: 1 Score Reviewed/Action Taken: Yes RUBÉN-7 AMB Questionnaire RUBÉN-7 Date RUBÉN - 7 assessed: 04/19/24 Source: Developed by Drs. Jurgen Dash, Araceli Singh, Liam Arauz and colleagues, with an educational ameya from [employer]. Review of Systems Const Denies chills and Denies fever(s) ENT Denies epistaxis and Denies nasal discharge Card Denies chest pain Resp Denies chest congestion, Denies cough and Denies hemoptysis GI Denies diarrhea and Denies nausea Skin/Breast Denies rash Neuro Reports no additional complaints Psych Reports no additional complaints Endo Reports no additional complaints Physical exam (Primary Care) Tobacco/Smoking Status: Tobacco use Status Tobacco use date assessed 06/06/24 06/06/24 08:29 Patient Tobacco Use Status Never used Tobacco 06/06/24 08:29 e-Cigarette/Vaping Use Never Used 06/06/24 08:29 Thrive Assessment: Date of Thrive Assessment Date Thrive assessed 04/19/24 06/06/24 08:29 Telehealth Telehealth Telehealth Platform: [employer] Location of provider rendering services: practice address Location of patient: address on file Patient Identification confirmed using: Name, : Yes Telehealth method: video Patient verbally consented to treatment: Yes Patient verbally consented to billing insurance company: Yes Patient informed of any privacy concerns related to visit: Yes Minutes spent on Phone/Video with Pt.: 16 Assessment and Plan Assessment & Plan (1) Morbid obesity due to excess calories: Code(s): E66.01 - Morbid (severe) obesity due to excess calories (2) Other specified hypothyroidism: Code(s): E03.8 - Other specified hypothyroidism (3) Vitamin D deficiency: Code(s): E55.9 - Vitamin D deficiency, unspecified Plan Patient is 49 year old female this is telemed apt to talk about her labs and to start her on wt lose medication vit d level is low, pt is taking supplement we talked about the injectables and Phentermine after discussing the side effect and possibility of rejection by Insurance she decided to try Injectables labs shows normal tsh, i have sent refill of her thyroid medication , she is to continue 50 mcg wagovy .25 mg injections sent we will try to get it approved she is aware that she will need to come in for follow up in 4 wks if approved Medications: New Wegovy (semaglutide (weight loss)) administer weeks 1 through 4 of therapy 0.25 mg (0.5 mL) subcut QWEEK 2 mL 1RF NS Refilled levothyroxine Take medication on empty stomach 50 mcg PO DAILY 90 tabs 3RF levothyroxine Take medication on empty stomach 50 mcg PO DAILY 90 tabs 3RF Coding Level of Care Code Tele Est Pt Level 3 (57604) Diagnoses Morbid obesity due to excess calories E66.01 Other specified hypothyroidism E03.8 Vitamin D deficiency E55.9
== END 2024-06-06 09:15 | disposition home or self-care (01) ==
LOC: HO.HMGC 07:55
PROVIDERS: PCP Internal Medicine; Visit Provider Internal Medicine
DX: E03.8 Other specified hypothyroidism (principal); E66.01 Morbid (severe) obesity due to excess calories; E55.9 Vitamin D deficiency, unspecified
CPT/HCPCS: 99213

== ENCOUNTER 2025-04-30 10:06 | Outpatient (REF) | payer OTHER, SELFPAY ==
--- OUTSIDE RECORDS SUMMARY | 2024-07-30 08:49 | XMS_ITS | Encounter Summary ---
Author Organization [facility] Address [address] [place] [address] Care Team Providers Care Test Examiner Name Role Phone Vicente Phillips MD Primary Care Provider [phone] Encounter Details Date Type Department Care Team (Latest Contact Info) Description 07/30/2024 8:49 AM EDT Hospital Encounter TH HISTORIC ENCOUNTERS EASTERN CONVERSION ONLY Reji Foley MD 175 [facility] [address] [place] [address] Morbid (severe) obesity due to excess calories [...] AM EDT Office Visit Bariatric Surgery - [place] 175 [facility] [address] [place] [phone] Libertad Campos PA 175 [facility] [address] [place] [address] documented as of this encounter Procedures Procedure [...] AM EDT Narrative 07/30/2024 1:42 PM EDT [facility] Diagnostic Imaging Department [address] [place] [id number] Patient: BALJINDER MAYA D.O.B./Age/Sex: 1975 - 49 - F Unit#: [id number] Location/Status: SPDIGEN/REG CLI Mnemonic/Ordering Site: UGIWAIRRO/SPDI Ordering [...] this does not correlate with prior imaging. FLAT LOCKER radiographs: Quantitative Research Analyst AP radiograph of the abdomen obtained. Bowel [...] Procedure Note Basim Jackson MD - 08/06/2024 [facility] Diagnostic Imaging Department [address] [place], [place] [id number] Patient: BALJINDER MAYA /Age/Sex: 1975 - 49 - F Unit#: [id number] Location/Status: SPDIGEN/REG CLI Mnemonic/Ordering Site: UGIWAIRRO/SPDI Ordering Physician: REJI FOLEY MD CR UGI W Air Routine - 07/30/24 - [id number] Report Status:Signed FINDINGS: Double contrast UGI performed. COMPARISON: Upper GI November 2017 and March 2015 HISTORY: Patient is a 49-year-old female with history of morbid obesity, gastric lap band with subsequent removal of band and conversion togastric sleeve. Patient reports this conversion took place in 2005, but this doesnot correlate with prior imaging. FLAT LOCKER radiographs: Quantitative Research Analyst AP radiograph of the abdomen obtained. Bowelgas [...] V28) documented in this encounter Care Teams Test Examiner Relationship Specialty Start Date End Date Vicente Phillips MD [address] [place] [address] PCP - General Internal Medicine 03/16/15 documented as of this encounter
--- OUTSIDE RECORDS SUMMARY | 2025-03-28 07:30 | XMS_ITS | Continuity of Care Document ---
Author Organization [facility] Address [address] [place] [address] [address] [place] [address] Phone Care Team Providers Care Pharmacy Technician Instructor Name Role Phone Troy DELCID, DAHIANA, Jurgen KRAUS Unavailable U navailable Procedures Procedure Date Offic Cons New/estab Mod 40 Mi- CT & [place] Surgical Stockings CVR Reveal Thigh High Duplex Scan-extrem Veins; Comp- CT & [place] Advance Directives Directive Yes / No Effective Date File Name No Information Encounters Encounter Description Practice Location Reason(s) For Visit Diagnoses Date Provider Providers Copied on Encounter Offic Cons New/estab Mod 40 Mi- [place] & [place] [facility], [address] [place] [address] Dr Galloway [address] [address]Kevin [place], [id number], [place] tel:[phone] CVR - [facility] Chronic venous hypertension (idiopathic) without complications of bilateral lower extremityRestle ss legs syndromeVenous insufficiency (chronic) (peripheral)Applied Researcher mp and spasmLocalized edema 5 Troy DELCID RVT, RPVI Robert. [address] [facility] [address], [place], [place], [id number] , [place]. tel:[phone] [facility], [address] [place] [address] Dr Galloway [address]Kevin [place], [id number], [place] tel:[phone] [facility] Chronic venous hypertension (idiopathic) with other complications of bilateral lower extremity Mar- 5 Troy DELCID RVT, RPVI Robert. [address] [facility], [address], [place], [place], [id number] , . tel:[phone] Referring Provider: Jurgen Simmons MD, RVT, EFRA, [address] [facility] [address], [place], [address] . tel:[phone] Family History Family Member Type Diagnosis Age At Onset No Information Payers Payer name Insurance type Covered republican ID Greer crystal(s) [facility] [id number] Social History Type Description Quantity Date Captured Comments Alcohol Use Details Unknown Caffeine Use Details Unknown Tobacco Use Status Current non-smoker Smoking Status Never Smoker Non-Smoking Tobacco Use Details : No Details Available : No Details Available Sex Female Vital Signs Date / Time: Height Weight BMI Pulse Rate Blood Pressure Temperature Respiratory Rate Body Surface Area Head Circumference Head Circ. Percentile Wt./Aron. Percentile BMI percentile Pulse Ox Inhaled Ox 113.400 kg (250.00 lbs) 40.4 7 kg/m eter (2) 132/76 mm[Hg] Chief Complaint And Reason For Visit No Information Reason For Referral Reason For Referral No Information Plan Of Treatment Date Type Action Status Goal Diet education completed Referral Ordered: Weight management: Referral to physician timeframe: 3 Months (related to Body mass index (BMI) 40.0-44.9, adult) ordered Appointment Evelyn [facility] BOOKED Appointment Evelyn [facility] BOOKED Appointment Evelyn Carl[facility] BOOKED Appointment Evelyn [facility] BOOKED Appointment Evelyn Carlisle BOOKED Appointment Evelyn Carl[facility] BOOKED Appointment Evelyn [facility] BOOKED Appointment Evelyn [facility] BOOKED Appointment Evelyn [facility] BOOKED Appointment Evelyn Carl[facility] BOOKED Appointment Evelyn [facility] BOOKED History Of Present Illness Encounter Date Complaint History Of Prese nt Illness No Information Functional Status Date Functional Assessmen t No Information Instructions Date Instruction Additional Infor mation Lifestyle education Related to B corbin mass index (BMI) 40.0-44.9, adult Patient education booklet given Related to Chronic venous hypertension (idiopathic) without complications of bilateral lower extremity Pre and post instruc tions reviewed and provided Related to Chronic venous hypertension (idiopathic) without complications of bilateral lower extremity Diet education Related to Body mass index (BMI) 40.0-44.9, adult Giving Encouragement to exercise Related to Body mass index (BMI) 40.0-44.9, adult Assessments Type Assessment Date No Information Patient Care Teams Name Effective Dates (start - stop) Status Members No Information
--- OUTSIDE RECORDS SUMMARY | 2025-04-30 10:58 | XMS_ITS | Clinical Summary ---
Author Organization [facility] Address [address] [place] [address] Care Team Providers Care Form Setter Steel Pan Forms Name Role Phone Unavailable Primary Care Provider Unavailabl e Social History Tobacco Use Types Packs/Day Years Used Date Smoking Tobacco: Never Assessed Sex and Gender Information Value Date Recorded Sex Assigned at Not on file Gender Identity Not on file Sexual Orientation Not on file Plan of Treatment Not on file
[2025-05-02 22:53] LABS: TS Negative Control Passed; TS Panel A 1; TS Panel B 0; TS Positive Control Passed; TSpotTB Negative (Negative)
== END 2025-04-30 10:07 | disposition home or self-care (01) ==
LOC: HO.HMGCLDS 10:06
PROVIDERS: PCP Internal Medicine; Visit Provider Internal Medicine
DX: Z11.1 Encounter for screening for respiratory tuberculosis (principal)
CPT/HCPCS: 36415; 86481

== ENCOUNTER 2025-05-02 15:37 | Outpatient (AMB) | payer OTHER, SELFPAY ==
--- OUTSIDE RECORDS SUMMARY | 2024-07-30 08:49 | XMS_ITS | Encounter Summary ---
Author Organization [facility] Address [address] [place] [address] Care Team Providers Care Nurse Informatics Educator Name Role Phone Vicente Phillips MD Primary Care Provider [phone] Encounter Details Date Type Department Care Team (Latest Contact Info) Description 07/30/2024 8:49 AM EDT Hospital Encounter TH HISTORIC ENCOUNTERS EASTERN CONVERSION ONLY Reji Foley MD 175 [facility] 120 [place] [address] Morbid (severe) obesity due to excess calories [...] AM EDT Office Visit Bariatric Surgery - [place] 175 [facility] [address] [place] [phone] Libertad Campos PA 175 [facility] [address] [place] [address] documented as of this encounter Procedures Procedure [...] AM EDT Narrative 07/30/2024 1:42 PM EDT [facility] Diagnostic Imaging Department [address] [place] [address] Patient: BALJINDER MAYA D.O.B./Age/Sex: 1975 - 49 - F Unit#: [id number] Location/Status: SPDIGEN/REG CLI Mnemonic/Ordering Site: UGIWAIRRO/SPDI Ordering [...] this does not correlate with prior imaging. SUPERVISOR LITHARGE radiographs: Donor Services Specialist AP radiograph of the abdomen obtained. Bowel [...] Procedure Note Basim Jackson MD - 08/06/2024 [facility] Diagnostic Imaging Department [address] [place], [place] [id number] Patient: BALJINDER MAYA /Age/Sex: 1975 - 49 - F Unit#: [id number] Location/Status: SPDIGEN/REG CLI Mnemonic/Ordering Site: UGIWAIRRO/SPDI Ordering Physician: REJI FOLEY MD CR UGI W Air Routine - 07/30/24 - [id number] Report Status:Signed FINDINGS: Double contrast UGI performed. COMPARISON: Upper GI November 2017 and March 2015 HISTORY: Patient is a 49-year-old female with history of morbid obesity, gastric lap band with subsequent removal of band and conversion togastric sleeve. Patient reports this conversion took place in 2005, but this doesnot correlate with prior imaging. SUPERVISOR LITHARGE radiographs: Donor Services Specialist AP radiograph of the abdomen obtained. Bowelgas [...] V28) documented in this encounter Care Teams Nurse Informatics Educator Relationship Specialty Start Date End Date Vicente Phillips MD [address] [place] [address] PCP - General Internal Medicine 03/16/15 documented as of this encounter
--- OUTSIDE RECORDS SUMMARY | 2025-03-28 07:30 | XMS_ITS | Continuity of Care Document ---
Author Organization [facility] Address [address] [place] [address] [address] [place] [address] Phone Care Team Providers Care Automobile Radio Repairer Name Role Phone Troy DELCID, DAHIANA, Jurgen [...] Mi- [place] & [place] [facility], [address] [place] [address] Dr Galloway [address] [address]Kevin [place], [id number], [place] tel:[phone] CVR - [facility] Chronic venous hypertension (idiopathic) without complications of bilateral lower extremityRestle ss legs syndromeVenous insufficiency (chronic) (peripheral)Manufacturing Production Technician mp and spasmLocalized edema 5 Troy DELCID RVT, RPVI Robert. [address] [facility] [address], [place], [place], [id number] , [place]. tel:[phone] [facility], [address] [place] [address] Dr Galloway 1000[address]Kevin [place], [id number], [place] tel:[phone] CVR [facility] Chronic venous hypertension (idiopathic) with other complications of bilateral lower extremity Mar- 5 Troy DELCID RVT, RPVI Robert. [address] [facility], [address], [place], [place], [id number] , . tel:[phone] Referring Provider: Jurgen Simmons MD, RVT, EFRA, [address] [facility] [address], [place], [address] . tel:[phone] Family History Family Member Type Diagnosis Age At Onset No Information Payers Payer name Insurance type Covered democrat ID Greer crystal(s) [facility] [id number] Social History Type Description Quantity Date [...]
--- NOTE | 2025-05-02 15:37 | MHC.PC.OV ---
Vital Signs 05/02/25 15:38 Height 5 ft 6 in Weight 249 lb BMI 40.2 BP 130/70 Blood Pressure Location Lt brachial Position Sitting Pulse 76 Pulse Source Pulse Oximeter Pulse Oximetry (%) 97 Intake Visit Reasons: Annual PE Allergies No Known Allergies (No Known Allergies*) Allergy (Verified 05/02/25 15:38) Medication List - Last Reconciled 05/02/25 by Vicente Phillips MD cholecalciferol (vitamin D3) 25 mcg PO DAILY 90 days levothyroxine 50 mcg PO DAILY Tobacco use date assessed: 05/02/25 Dental Screening Dental Screen Date: 05/02/25 Did you have a dental visit in the last 12 months?: Yes Did you have a dental problem in the last 6 months where you did not have access to dental care?: No Was dental information given to patient?: Patient has dentist HPI Annual PE HPI Details History of Present Illness - The patient is a 49-year-old female presenting for wellness and preventive care visit. - The patient has historically low vitamin D levels, for which she is reportedly taking a multivitamin that does not contain adequate vitamin D. Despite this, she has experienced persistent low levels of vitamin D since last observed laboratory tests from the previous year. - She expresses concern about potential menopause transitioning symptoms and indicates that she has not yet visited an COMPENSATION AND BENEFITS ANALYST for evaluation despite yearly orders being placed. - Patient inquires about her blurred vision, which has persisted despite a stable prescription for eyeglasses. She notes increased blurriness of vision since her last eye examination. - There is a history of being due for several health screenings including mammogram, colonoscopy, and scheduling an COMPENSATION AND BENEFITS ANALYST appointment. - TB test was performed recently two days prior to this visit and is noted to require a follow-up within a week. - The patient has not taken a tetanus vaccine since her last recorded dose in 2014 and is currently due for renewal. Medical History: - Chronic Vitamin D deficiency - hypothyroidism Social History: - The patient is considering possible menopausal changes and the need for related healthcare. - Reports increased blurring of vision, leading to frequent use of eyeglasses. - The patient keeps eyeglasses on her neck for convenience and avoids forgetting them. - Consumes multivitamins as part of her dietary management but inadequate for vitamin D supplementation. Health Maintenance - Due for mammogram annually, as last done in the previous year. - COMPENSATION AND BENEFITS ANALYST visits suggested annually and pending for current year. - Needs colonoscopy screening considering age and updated guidelines. - TB test conducted two days prior to visit is pending results. - Tetanus vaccine advised as last administered in 2014. Medications - Multivitamin: Insufficient for managing vitamin D deficiency as stated by the patient. 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 - Continue taking high-dose vitamin D as prescribed once weekly. - Prepare for upcoming labs by fasting for at least eight hours prior to the test. - Consider scheduling a colonoscopy as per new guidelines. - Schedule a mammogram as indicated in the recent mail. - Come back for TB test results after one week as instructed. - Arrange for a tetanus vaccine update. - continue levothyroxine 50 mcg now Review of Systems - General: No fever no chills - Neurological: No headaches no dizziness - Ear nose throat: No sore throat no hearing difficulty no ear pain - Cardiovascular: No syncope, no chest pain, no palpitations - Gastrointestinal: No nausea vomiting or diarrhea - Endocrine: No polyuria polydipsia no heat intolerance - Genitourinary: No dysuria - Skin: No new complaints Physical Exam General: Cooperative, healthy appearing, comfortable, no acute distress Orientation: Patient oriented x3 Head: Normal to inspection Ears: Within normal limit visually Nose: Normal external nose present Face and sinus: Normal facial exam Eyes: Appearance normal, extraocular movement intact pupils reactive Neck: Normal visual inspection and supple Respiratory: Normal respiratory effort and able to speak in complete sentences. Clear to auscultation, no stridor Cardiovascular: S1 and S2 RRR Breast exam benign GI: Normal to inspection. Soft to palpation and nontender Skin: Turgor normal, no acute findings Neuro: Patient oriented x3, motor sensory intact, balance intact, tandem pass Extremities: Normal to inspection, full range of motion [facility] Medical History Vaginitis and vulvovaginitis Surgical History No pertinent past surgical history Social History Housing: House Alcohol intake: current Alcohol intake frequency: holidays/special occasions only Patient Tobacco Use Status: Never used Tobacco e-Cigarette/Vaping Use: Never Used service: No Current occupational status: employed Cognitive needs: No Hearing needs: No Vision needs: No Questionnaire PHQ-9 Over the last 2 weeks, how often have you been bothered by any of the following problems? 1. Little interest or pleasure in doing things: several days 2. Feeling down, depressed, or hopeless: not at all 3. Trouble falling or staying asleep, or sleeping too much: not at all 4. Feeling tired or having little energy: not at all 5. Poor appetite or overeating: not at all 6. Feeling bad about yourself - or that you are a failure or have let yourself or your family down: not at all 7. Trouble concentrating on things, such as reading the newspaper or watching television: not at all 8. Moving or speaking so slowly that other people could have noticed. Or the opposite - being so fidgety or restless that you have been moving around a lot more than usual: not at all 9. Thoughts that you would be better off or of hurting yourself in some way: not at all Total score: 1 Depression Screening Interpretation: Negative Depression Screening Done: Yes 33173 - PHQ-9 Billing: Yes Source: Developed by Drs. Jurgen Dash, Araceli Singh, Liam Arauz and colleagues, with an educational ameya from [email or web address]. Thrive Questionnaire Date Thrive assessed: 05/02/25 I am a: Patient What is your living situation today?: I have a steady place to live Within the past 12 months, did the food you bought not last and you didn't have the money to get more?: Never true Within the past 12 months, did you worry whether your food would run out before you got money to buy more?: Never true Do you have trouble paying for medicines?: No Do you have trouble getting transportation to medical appointments?: No Do you have trouble paying your heating and electricity bill?: No Do you have trouble taking care of your child, family member or friend?: No Do you have trouble with day-to-day activities such as bathing, preparing meals, shopping, managing finances, etc.?: No Are you currently unemployed and looking for a job?: Yes Are you interested in more education?: No Please select the resources that you would like help with: Job search/training Currently or been in a relationship where the following occur: No concerns reported THRIVE Score: 0 AUDIT C Alcohol Use Questionnaire (AUDIT-C) 1. How often do you have a drink containing alcohol?: Never 3. How often do you have six or more drinks on one occasion?: Never Total Score: 0 Score Reviewed/Action Taken: Yes RUBÉN-7 AMB Questionnaire RUBÉN-7 Date RUBÉN - 7 assessed: 05/02/25 Feeling nervous, anxious, or on edge: 0 = Not at all Not being able to stop or control worryin = Not at all Worrying too much about different things: 0 = Not at all Trouble relaxin = Not at all Being so restless that it is hard to sit still: 0 = Not at all Becoming easily annoyed or irritable: 0 = Not at all Feeling afraid as if something awful might happen: 0 = Not at all Total RUBÉN-7 score (0-4 normal; 5-9 mild; 10-14 moderate; 15-21 severe): 0 Source: Developed by Drs. Jurgen Dash, Araceli Singh, Liam Arauz and colleagues, with an educational ameya from [email or web address]. RUBÉN-7 Assessment Billing RUBÉN-7 Assessment Tool: RUBÉN-7 Assessment 21030 Physical exam (Primary Care) Vital Signs: Last Vital Signs Pulse 76 05/02/25 15:38 BP 130/70 05/02/25 15:38 Pulse Ox 97 05/02/25 15:38 BMI result Body Mass Index 40.2 Tobacco/Smoking Status: Tobacco use Status Tobacco use date assessed 05/02/25 05/02/25 15:39 Patient Tobacco Use Status Never used Tobacco 05/02/25 15:39 e-Cigarette/Vaping Use Never Used 05/02/25 15:39 PHQ-9: PHQ-9 Score PHQ-9: Total score 1 05/02/25 15:45 Depression Screening Interpretation: Negative Thrive Assessment: Date of Thrive Assessment Date Thrive assessed 05/02/25 05/02/25 15:39 Currently or been in a relationship where the following occur: No concerns reported Immunizations Boostrix Tdap 2.5 Lf unit-8 mcg-5 Lf/0.5 mL intramuscular syringe Performing Provider: Vicente Phillips MD Performing Location: [facility] [place] Administered by: John Mckinley CMA on 05/02/25 16:00 Dose Route Admin Location Dispensed Lot Number Expiration Date NDC Major [employer]sembler 0.5 mL IM Left Deltoid 0.5 mL [id number] 06/07/27 [id number] [facility] Total Dispensed Waste 0.5 mL 0 % VIS Given Date VIS Provided VIS Publication Date 05/02/25 Single Vaccine 21 Eligibility Eligibility Date Funding Source Not [facility] Eligible 05/02/25 Private Coding Level of Care Code Est Pt Level 3 (54653) Est Pt Prev Care 40-64y(34690) Diagnoses Encounter for general adult medical examination with abnormal findings Z00.01 Elevated TSH R79.89 Colon cancer screening Z12.11 Morbid obesity E66.01 Additional Codes RUBÉN-7 Assessment Billing - RUBÉN-7 Assessment Tool: RUBÉN-7 Assessment 64381 ([id number]) PHQ-9 - 61378 - PHQ-9 Billing: Yes ([id number]) Assessment & Plan Assessment & Plan (1) Encounter for general adult medical examination with abnormal findings: Code(s): Z00.01 - Encounter for general adult medical examination with abnormal findings Category: Medical (2) Elevated TSH: Code(s): R79.89 - Other specified abnormal findings of blood chemistry Category: Medical (3) Colon cancer screening: Code(s): Z12.11 - Encounter for screening for malignant neoplasm of colon Category: Medical (4) Morbid obesity: Code(s): E66.01 - Morbid (severe) obesity due to excess calories Category: Medical Plan History of Present Illness - The patient is a 49-year-old female presenting for wellness and preventive care visit. - The patient has historically low vitamin D levels, for which she is reportedly taking a multivitamin that does not contain adequate vitamin D. Despite this, she has experienced persistent low levels of vitamin D since last observed laboratory tests from the previous year. - She expresses concern about potential menopause transitioning symptoms and indicates that she has not yet visited an COMPENSATION AND BENEFITS ANALYST for evaluation despite yearly orders being placed. - Patient inquires about her blurred vision, which has persisted despite a stable prescription for eyeglasses. She notes increased blurriness of vision since her last eye examination. - There is a history of being due for several health screenings including mammogram, colonoscopy, and scheduling an COMPENSATION AND BENEFITS ANALYST appointment. - TB test was performed recently two days prior to this visit and is noted to require a follow-up within a week. - The patient has not taken a tetanus vaccine since her last recorded dose in 2014 and is currently due for renewal. Medical History: - Chronic Vitamin D deficiency - hypothyroidism Social History: - The patient is considering possible menopausal changes and the need for related healthcare. - Reports increased blurring of vision, leading to frequent use of eyeglasses. - The patient keeps eyeglasses on her neck for convenience and avoids forgetting them. - Consumes multivitamins as part of her dietary management but inadequate for vitamin D supplementation. Health Maintenance - Due for mammogram annually, as last done in the previous year. - COMPENSATION AND BENEFITS ANALYST visits suggested annually and pending for current year. - Needs colonoscopy screening considering age and updated guidelines. - TB test conducted two days prior to visit is pending results. - Tetanus vaccine advised as last administered in 2014. Medications - Multivitamin: Insufficient for managing vitamin D deficiency as stated by the patient. 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 - Continue taking high-dose vitamin D as prescribed once weekly. - Prepare for upcoming labs by fasting for at least eight hours prior to the test. - Consider scheduling a colonoscopy as per new guidelines. - Schedule a mammogram as indicated in the recent mail. - Come back for TB test results after one week as instructed. - Arrange for a tetanus vaccine update. - continue levothyroxine 50 mcg now Orders: Orders Lipid Panel Today R79.89 - Other specified abnormal findings of blood chemistry, Z00.01 - Encounter for general adult medical examination with abnormal findings TDaP Immunization Today Z23 - Encounter for immunization TSH reflex Free T4 Today R79.89 - Other specified abnormal findings of blood chemistry, Z00.01 - Encounter for general adult medical examination with abnormal findings Complete Blood Count Auto Diff Today R79.89 - Other specified abnormal findings of blood chemistry, Z00.01 - Encounter for general adult medical examination with abnormal findings Comprehensive [place]. Panel Fast Today R79.89 - Other specified abnormal findings of blood chemistry, Z00.01 - Encounter for general adult medical examination with abnormal findings Referrals COMPENSATION AND BENEFITS ANALYST Referral Z01.419 - Encounter for gynecological examination (general) (routine) without abnormal findings Gastroenterology Referral Z12.11 - Encounter for screening for malignant neoplasm of colon Medications: New ergocalciferol (vitamin D2) 1,250 mcg PO QWEEK 13 caps 0RF 90 days
[2025-05-02 15:38] VITALS: BP 130/70; PULSE 76; O2SAT 97; BMI 40.2
== END 2025-05-02 16:12 | disposition home or self-care (01) ==
LOC: HO.HMCC 15:37
PROVIDERS: PCP Internal Medicine; Visit Provider Internal Medicine
DX: Z00.01 Encounter for general adult medical examination with abnormal findings (principal); R79.89 Other specified abnormal findings of blood chemistry; E66.01 Morbid (severe) obesity due to excess calories; Z68.41 Body mass index [BMI] 40.0-44.9, adult; Z12.11 Encounter for screening for malignant neoplasm of colon; Z23 Encounter for immunization

== ENCOUNTER → 2025-05-02 15:37 | Outpatient (BNVA) | payer OTHER, SELFPAY | PROVIDERS: PCP Internal Medicine; Visit Provider Internal Medicine | DX: Z00.01 Encounter for general adult medical examination with abnormal findings (principal); E55.9 Vitamin D deficiency, unspecified; R79.89 Other specified abnormal findings of blood chemistry; E66.01 Morbid (severe) obesity due to excess calories; Z23 Encounter for immunization; Z68.41 Body mass index [BMI] 40.0-44.9, adult | CPT/HCPCS: 90471; 90715; 96127; 99212; 99396 ==

== ENCOUNTER 2025-05-15 09:16 | Outpatient (REF) | payer OTHER, SELFPAY ==
--- OUTSIDE RECORDS SUMMARY | 2024-07-30 08:49 | XMS_ITS | Encounter Summary ---
Author Organization [facility] Address [address] [place] [address] Care Team Providers Care [place] Name Role Phone Vicente Phillips MD Primary Care Provider [phone] Encounter Details Date Type Department Care Team (Latest Contact Info) Description 07/30/2024 8:49 AM EDT Hospital Encounter TH HISTORIC ENCOUNTERS EASTERN CONVERSION ONLY Reji Foley MD [address] [facility] [address] [place] [address] Morbid (severe) obesity due to excess calories (CMS/HCC V24, CMS/HCC V28) Social History Tobacco Use Types Packs/Day Years Used Date Smoking Tobacco: Never Smokeless Tobacco: Never Alcohol Use Standard Drinks/Week Comments Yes 0 (1 standard drink = 0.6 oz pur e alcohol) occasionally Interpersonal Safety Answer Date Record ed Physical Abuse 01/03/2025 Verbal Abuse 01/03/2025 Comments No Sex and Gender Information Value Date Recorded Sex Assigned at Female 01/03/2025 5:52 AM EDT Legal Sex Female 2:07 PM EST Gender Identity Female 01/03/2025 5:52 AM EDT Sexual Orientation Straight 01/03/2025 5: 52 AM EDT documented as of this encounter Plan of Treatment Upcoming Encounters Date Type Department Care Team (Late st Contact Info) Description 05/19/2025 11:00 AM EDT Office Visit Bariatric Surgery - [place] [address] [facility] [address] [place] [id number] [place] Campos [place] [address] [facility] [address] [place] [address] documented as of this encounter Procedures Procedure Name Priority Date/Time Associated Diagnosis Comments CR UGI W AIR ROUTINE Routine 07/30/2024 1:42 PM EDT Morbid (severe) obesity due to excess calories (CMS/HCC V24, CMS/HCC V28) documented in this encounter Results * CR UGI W AIR ROUTINE (07/30/2024 1:42 PM EDT) Anatomical Region Laterality Modality Radiographic Naomy ging 07/30/2024 8:56 AM EDT Narrative 07/30/2024 1:42 PM EDT [facility] Diagnostic Imaging Department [address] [place] [id number] Patient: BALJINDER MAYA D.O.B./Age/Sex: 1975 - 49 - F Unit#: [id number] Location/Status: SPDIGEN/REG CLI Mnemonic/Ordering Site: UGIWAIRRO/SPDI Ordering Physician: REJI FOLEY MD CR UGI W Air Routine - 07/30/24 - 0929 Report Status:Signed FINDINGS: Double contrast UGI performed. 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 Patient reports this conversion took place in 2005, but this does not correlate with prior imaging. DIGITAL PUBLISHING SPECIALIST radiographs: Scarf Gluer AP radiograph of the abdomen obtained. Bowel gas pattern is nonobstructive. Visualized lung bases appear clear. Surgical clips are noted in the left upper quadrant consistent with history of prior gastric sleeve. Osseous structures are overall unremarkable. FINDINGS: Effervescent crystals were administered orally. Thick and thin barium was then administered orally under fluoroscopic control. Esophagus: Normal distensibility, motility and mucosal pattern. There is no evidence of obstruction. There is a moderate, sliding, axial hiatal hernia. Stomach: Gastric anatomy consistent with history of gastric sleeve. Normal distensibility and motility. Prompt passage of contrast from the stomach into the duodenal bulb and sweep. No gastric mass or ulceration. Visualization of proximal small bowel is within normal limits. Gastroesophageal reflux: Small amount of spontaneous gastroesophageal reflux visualized. DAP: 19.01 Gycm^2 Exam performed and dictated by: Gia Andino PA-C Supervising physician: Basim Jackson MD IMPRESSION: Moderate, sliding, axial hiatal hernia with small amount of spontaneous gastroesophageal reflux status post gastric sleeve. Otherwise normal double contrast UGI exam. Dictating Physician: BASIM JACKSON Electronically Signed by: BASIM JACKSON Dic Date/Time: 07/30/24 1212 Sign date/Time: 07/30/24 1342 Procedure Note Basim Jackson MD - 08/06/2024 [facility] Diagnostic Imaging Department [address] [place], [place] [id number] Patient: BALJINDER MAYA /Age/Sex: 1975 - 49 - F Unit#: [id number] Location/Status: SPDIGEN/REG CLI Mnemonic/Ordering Site: [facility]GIWAIRRO/SPDI Ordering Physician: REJI FOLEY MD CR UGI W Air Routine - 07/30/24 - 6867 Report Status:Signed FINDINGS: Double contrast UGI performed. COMPARISON: Upper GI November 2017 and March 2015 HISTORY: Patient is a 49-year-old female with history of morbid obesity, gastric lap band with subsequent removal of band and conversion togastric sleeve. Patient reports this conversion took place in 2005, but this doesnot correlate with prior imaging. DIGITAL PUBLISHING SPECIALIST radiographs: Scarf Gluer AP radiograph of the abdomen obtained. Bowelgas pattern is nonobstructive. Visualized lung bases appear clear. Surgicalclips are noted in the left upper quadrant consistent with history of priorgastric sleeve. Osseous structures are overall unremarkable. FINDINGS: Effervescent crystals were administered orally. Thick and thinbarium was then administered orally under fluoroscopic control. Esophagus: Normal distensibility, motility and mucosal pattern. There isno evidence of obstruction. There is a moderate, sliding, axial hiatalhernia. Stomach: Gastric anatomy consistent with history of gastric sleeve.Normal distensibility and motility. Prompt passage of contrast from the stomachinto the duodenal bulb and sweep. No gastric mass or ulceration. Visualizationof proximal small bowel is within normal limits. Gastroesophageal reflux: Small amount of spontaneous gastroesophagealreflux visualized. DAP: 19.01 Gycm^2 Exam performed and dictated by: Gia Andino PA-C Supervising physician: Basim Jackson MD IMPRESSION: Moderate, sliding, axial hiatal hernia with small amount of spontaneous gastroesophageal reflux status post gastric sleeve. Otherwise normaldouble contrast UGI exam. Dictating Physician: BASIM JACKSON Electronically Signed by: BASIM JACKSON Dic Date/Time: 07/30/24 1212 Sign date/Time: 07/30/24 1342 us Reji Foley MD IMG XR PROCEDURES Final Resu lt documented in this encounter Visit Diagnoses Diagnosis Morbid (severe) obesity due to excess calories (CMS/HCC V24, CMS/HCC V28) documented in this encounter Care Teams [place] Relationship Specialty Start Date End Date Vicente Phillips MD [address] [place] [address] PCP - General Internal Medicine 03/16/15 documented as of this encounter
--- OUTSIDE RECORDS SUMMARY | 2025-05-15 09:40 | XMS_ITS | Clinical Summary ---
Author Organization [facility] Address [address] [place] [address] Care Team Providers Care Video Operator Name Role Phone Unavailable Primary Care Provider Unavailabl e Social History Tobacco Use Types Packs/Day Years Used Date Smoking Tobacco: Never Assessed Sex and Gender Information Value Date Recorded Sex Assigned at Not on file Gender Identity Not on file Sexual Orientation Not on file Plan of Treatment Not on file
[2025-05-15 10:13] LABS: MANUAL DIFF FLAG NO
[2025-05-15 10:16] LABS: Hematocrit 37.0 % (37.0-47.0); Hemoglobin 11.9 g/dl (12.0-16.0); Imm Gran Abs Auto 0.01 X10*3/uL (0.00-0.03); Imm Gran Pct Auto 0.1 % (0.0-0.4); Lymphocytes Absolute Auto 2.3 X10*3/uL (1.2-4.9); Mean Corpuscular HGB Conc 32.2 g/dl (31.0-35.0); Mean Corpuscular Hemoglobin 29.1 pg (27.0-33.0); Mean Corpuscular Volume 90.5 fL (80.0-98.0); NRBC Abs Auto 0.000 X10*3/uL (0.0-0.012); NRBC Pct Auto 0.0 /100WBC (0.0-0.2); Platelet Count 237 X10*3/uL (160-400); Red Blood Count 4.09 X10*6/uL (4.20-5.50); White Blood Count 6.9 X10*3/uL (4.8-10.8)
[2025-05-15 11:27] LABS: Alanine Aminotransferase 31 U/L (0-31); Albumin Level 3.9 g/dL (3.5-5.0); Alkaline Phosphatase 110 U/L (39-117); Anion Gap 12 (12-20); Aspartate Amino Transferase 27 U/L (5-31); Blood Urea Nitrogen 8 mg/dL (9-16); Calcium 9.1 mg/dL (8.4-10.2); Carbon Dioxide 26 mmol/L (22-29); Chloride 108 mmol/L (96-108); Cholesterol 192 mg/dL (<200); Estimated Glomerular Filt Rate > 60; HDL Cholesterol 63 mg/dL (>40); Potassium 4.0 mmol/L (3.3-5.1); Sodium 142 mmol/L (135-145); Total Protein 6.7 g/dL (6.5-8.0); Triglycerides 103 mg/dL (<150)
[2025-05-15 14:05] LABS: HBS Num1 0.39 mIU/mL (0-7.99); ~Hepatitis B Surface Antibody NONREACTIVE (Nonreactive)
[2025-05-16 14:23] LABS: Rubeola IgG (Measles) >300.00 AU/mL
== END 2025-05-15 09:17 | disposition home or self-care (01) ==
LOC: HO.HMGCLDS 09:16
PROVIDERS: PCP Internal Medicine; Visit Provider Internal Medicine
DX: Z00.01 Encounter for general adult medical examination with abnormal findings (principal); R76.0 Raised antibody titer; R79.89 Other specified abnormal findings of blood chemistry; Z78.9 Other specified health status
CPT/HCPCS: 36415; 80053; 80061; 84443; 85025; 86706; 86735; 86762; 86765; 86787